=== PATIENT | male | born 1960 | race Caucasian/White ===

== ENCOUNTER → 2018-05-18 | Outpatient (CLI) | payer OTHER ==
[~2018-05-18] VITALS: Ht 190.5 cm; Wt 93.0 kg
[~2018-05-18] MED LIST: AMIO400T5 PO; ASP81TEC PO; CATHETER FLUSH 10 ML SYR IV PRN; LISI20TA PO; MTP50T PO; OMEP20CA12 PO; REGADENOSON 0.4 MG/5 ML SYR (LEXISCAN) IV ONE; RIVA20TA2 PO; SIMV40TA4 PO; meTOprolol 5 MG/5 ML (LOPRESSOR) VIAL IV ONE; meTOprolol 5 MG/5 ML (LOPRESSOR) VIAL ONE
[2018-05-18 09:27] VITALS: BP 132/90
--- NOTE | 2018-05-18 17:49 | STRESS TEST ---
DATE OF SERVICE: 05/18/2018 LEXISCAN MYOVIEW STRESS TEST REPORT Baseline heart rate is 100. Baseline blood pressure 146/105. Baseline EKG is atrial fibrillation with rapid ventricular response. In summary, the patient was injected with 10.63 mCi of technetium-99 Myoview and the resting images were obtained. Then, the patient received 0.4 mg of Lexiscan followed by 32.3 mCi of technetium-99 Myoview. Throughout the test, there were no EKG changes. The resting and stress images were reviewed and compared in the short axis, horizontal long axis, and vertical long axis views. Review of the images showed some motion artifact with diaphragmatic attenuation and mild decreased uptake involving the inferior wall with no significant reversibility. SSS is 3, SDS 2, TID value 1.08. On the gated images, the left ventricle appeared to be in normal size with mild diffuse left ventricular hypokinesia, calculated ejection fraction 49%, gated images are unreliable due to the underlying atrial fibrillation. CONCLUSION: 1. The patient tolerated Lexiscan well. 2. Diaphragmatic attenuation with typical male pattern with no significant ischemia or infarction on SPECT images. 3. Baseline atrial fibrillation persisted throughout test. 4. Gated images calculated ejection fraction to be 49%, unreliable gated images due to underlying atrial fibrillation. Job ID: [id number] DocumentID: [id number] Dictated Date: 05/18/2018 13:01:50 Boiler/Chiller Technician Date: 05/18/2018 17:48:02 Dictated By: MARK BONE MD
== END ==
LOC: CARD 07:10
PROVIDERS: ATTEND Physician Assistant
DX: I25.10 Atherosclerotic heart disease of native coronary artery without angina pectoris (principal); I11.0 Hypertensive heart disease with heart failure; I50.9 Heart failure, unspecified; E78.5 Hyperlipidemia, unspecified
CPT/HCPCS: 78452; 93017

== ENCOUNTER → 2019-06-16 | Outpatient (CLI) | payer OTHER ==
[~2019-06-16] VITALS: Ht 191 cm; Wt 98.0 kg
[2019-06-16 13:18] VITALS: BP 160/102
[2019-06-16 13:45] VITALS: BP 149/104
--- NOTE | 2019-06-17 09:24 | STRESS TEST ---
DATE OF SERVICE: 06/16/2019 LEXISCAN MYOVIEW STRESS TEST REPORT REFERRING PHYSICIAN: Dr. Sabrina Haas. Baseline heart rate is 120. Baseline blood pressure 160/100. Baseline EKG is atrial fibrillation with no ischemic changes. In summary, the patient was injected with 10.92 mCi of technetium-99 Myoview and the resting images were obtained. Then, the patient received 0.4 mg of Lexiscan followed by 30.2 mCi of technetium-99 Myoview. Throughout the test, there were no EKG changes. The resting and stress images were reviewed and compared in the short axis, horizontal long axis, and vertical long axis views. Review of the images showed good radiotracer uptake with no significant ischemia or infarction. SSS is 2, SDS 2, TID value 1.06. On the gated images, the left ventricle appeared to be normal size with normal contractility. Calculated ejection fraction 46%. Gated images are unreliable due to underlying atrial fibrillation. CONCLUSION: 1. The patient tolerated Lexiscan well. 2. Baseline atrial fibrillation persisted throughout test. 3. No ischemia or infarction were noted on SPECT images. 4. Normal left ventricular size with good contractility. Calculated ejection fraction 46%. Gated images are unreliable due to underlying atrial fibrillation. Job ID: [id number] DocumentID: [id number] Dictated Date: 06/17/2019 06:54:49 Poultice Machine Operator Date: 06/17/2019 09:24:16 Dictated By: MARK BONE MD
== END ==
LOC: CARD 11:46
PROVIDERS: ATTEND Internal Medicine Cardiovascular Disease
DX: I08.0 Rheumatic disorders of both mitral and aortic valves (principal); E78.5 Hyperlipidemia, unspecified; I48.91 Unspecified atrial fibrillation; I10 Essential (primary) hypertension; I25.10 Atherosclerotic heart disease of native coronary artery without angina pectoris
CPT/HCPCS: 78452; 93017; 93306

== ENCOUNTER → 2021-03-28 | Outpatient (CLI) | payer OTHER ==
[~2021-03-28] MED LIST changes: -CATHETER FLUSH 10 ML SYR IV PRN; -REGADENOSON 0.4 MG/5 ML SYR (LEXISCAN) IV ONE; -meTOprolol 5 MG/5 ML (LOPRESSOR) VIAL IV ONE; -meTOprolol 5 MG/5 ML (LOPRESSOR) VIAL ONE
== END ==
LOC: CARD 08:19
PROVIDERS: ATTEND Physician Assistant
DX: I08.0 Rheumatic disorders of both mitral and aortic valves (principal); I11.9 Hypertensive heart disease without heart failure
CPT/HCPCS: 93306

== ENCOUNTER → 2022-07-23 | Outpatient (CLI) | payer OTHER | LOC: CARD 08:54 | PROVIDERS: ATTEND Physician Assistant | DX: I11.9 Hypertensive heart disease without heart failure (principal); I35.1 Nonrheumatic aortic (valve) insufficiency | CPT/HCPCS: 93306 ==